=== PATIENT | female | born 1995 | race Caucasian/White ===

== ENCOUNTER 2016-08-15 01:13 | Emergency (ER) | payer MEDICAID, OTHER ==
[~2016-08-15] VITALS: Ht 167.6 cm; Wt 68.0 kg
--- OUTSIDE RECORDS SUMMARY | 2016-08-15 01:22 | XMS REPORT | Continuity of Care Document ---
Author Author Interface Organization Interface Address Unknown Phone Unavailable Problems Problem Status Onset Date Classification Date Reported Comments Source Medications Medication Details Route Status Patient Instructions Ordering Provider Order Date Source Tylenol Refill(s) 0 [facility] traMADol 50 mg oral tablet 50 mg=1 tablet, PO, q6hr, PRN Pain, Adjunct: Mild, Moderate and Severe, # 120 tablet, Refill(s) 0 [facility] HYDROcodone/acetaminophen 1 tablet PRN pain, PO, PRN PRN Pain, Adjunct: Mild, Moderate and Severe, Refill(s) 0 [facility] meloxicam 15 mg oral tablet 15 mg=1 tablet, PO, qDay, # 30 tablet, Refill(s) 0 [facility] Allergies, Adverse Reactions, Alerts Substance Category Reaction Severity Reaction type Status Date Reported Comments Source Immunizations Immunization Date Given Site Status Last Updated Comments Source Results Order Name Results Value Reference Range Date Interpretation Comments Source NUA Color Ur YELLOW 09/23/2014 [facility] NUA Clarity Ur CLEAR 09/23/2014 [facility] NUA Glucose Ur NEGATIVE 09/23/2014 [facility] NUA Ketones Ur NEGATIVE 09/23/2014 [facility] NUA Specific [place] Ur 1.020 09/23/2014 [facility] NUA pH Ur 7.0 09/23/2014 [facility] NUA Protein Ur NEGATIVE 09/23/2014 [facility] BasMet Sodium 138 mmol/L 135 - 145 09/07/2014 [facility] NUA Nitrite Ur NEGATIVE 09/23/2014 [facility] NUA Blood Ur NEGATIVE 09/23/2014 [facility] Potassium 4.5 mmol/L 3.5 - 5.2 09/07/2014 [facility]Met Chloride 103 mmol/L 99 - 112 09/07/2014 [facility] NUA Leukocytes Ur NEGATIVE 09/23/2014 [facility] Carbon Dioxide 26 mmol /L 20 - 30 09/07/2014 [facility] Anion Gap 9 mmol/L 7 - 14 09/07/2014 [facility] Calcium 9.0 mg/dL 8.6 - 10.5 09/07/2014 [facility]Met Glucose 90 mg/dL 65 - 110 09/07/2014 [facility] BUN 12 mg/dL 5 - 20 09/07/2014 [facility] Creatinine .79 mg/dL .35 - .84 09/07/2014 [facility]Met Creatinine, Old Calibration 1.0 mg/dL 0.5 - 1.0 NA This creatinine value is a calculated value from the newly implemented IDMS calibration. It represents the value equivalent to what was previously reported by the laboratory.
[facility] Citrate Ur Citrate Ur Random 63.6 mg/dL 09/27/2014 [facility] Citrate Ur Citrate/Creatinine Ur 544.5 mg/gm Cr 2014 [facility] Citrate Ur Calcium/Citrate Ur 0.14 ZZ 09/27/2014 [facility] N Micro WBC Ur None 09/23/2014 [facility] N Micro RBC Ur None 09/23/2014 [facility] N Micro Renal Epi Ur None 09/23/2014 [facility] Ca U Calcium Ur Random 9.2 mg /dL 09/23/2014 [facility] Ca U Calcium/Creatinine Ur Random 0.08 09/23/2014 [facility] UA Color Ur STRAW 09/07/2014 [facility] UA Clarity Ur CLEAR 09/07/2014 [facility] Creat U Creatinine Ur Random 116.8 mg/dL 09/23/2014 [facility] UA Glucose Ur NEGATIVE NEGATIVE 09/07/2014 [facility] UA Bili Ur NEGATIVE NEGATIVE 09/07/2014 [facility] UA Ketones Ur NEGATIVE NEGATIVE 09/07/2014 [facility] UA Specific [place] Ur 1.011 1.005 - 1.035 2014 [facility] UA pH Ur 7.0 4.6 - 8.0 09/07/2014 [facility] UA Protein Ur NEGATIVE NEGATIVE 09/07/2014 [facility] UA Nitrite Ur NEGATIVE NEGATIVE 09/07/2014 [facility] UA Blood Ur NEGATIVE NEGATIVE 09/07/2014 [facility] UA Leukocytes Ur NEGATIVE NEGATIVE 09/07/2014 [facility] UA Urobilinogen Ur NORMAL mg/ dL 0.2 - 2.0 09/07/2014 [facility] Vital Signs Vital Sign Value Date Comments Source Current Weight 63.30 kg 09/08 [facility] Temperature Celsius 37.3 Gayla 09/08/2014 [facility] Heart Rate 80 bpm 09/08/2014 [facility] Respiratory Rate 20 BR/min [facility] Systolic Blood Pressure Cuff Monitored <content ID=' [id number]'>120</content>/<content ID='[id number]'>74</content> mm[Hg ] 09/08/2014 [facility] Temperature Route Oral </br>(09/07/2014 19:00:00) <sup> </sup> 09/08/2014 [facility] Height/Length 166 cm 2014 [facility] Heart Rate 72 bpm 09/08/2014 [facility] Respiratory Rate 20 BR/min [facility] Systolic Blood Pressure Cuff Monitored <content ID=' [id number]'>120</content>/<content ID='[id number]'>58</content> mm[Hg ] 09/23/2014 [facility] Heart Rate 84 bpm 09/23/2014 [facility] Current Weight 63.1 kg 2014 [facility] Height/Length 165.6 cm 2014 [facility] Height/Length 165.6 cm 2014 [facility] Heart Rate 84 bpm 09/23/2014 [facility] Systolic Blood Pressure Cuff Monitored <content ID=' [id number]'>120</content>/<content ID='[id number]'>58</content> mm[Hg ] 09/23/2014 [facility] Current Weight 63.1 kg 2014 [facility] Encounters Location Location Details Encounter Type Encounter Number Reason For Visit Attending Provider ADM Date DC Date Status Source [facility] ER [id number] Pain - Abdomen/Pelvis Ida Marie 09/07/2014 09/07/2014 Active [facility] CLI [id number] 18 year old F with b/l flank pain. Normal UA and BMP. CHOLO showing cortical thinning of left kidney. Osvaldo Barron 09/23/2014 09/23/2014 Active [facility] Procedures Procedure Code Date Perfomer Comments Source
[2016-08-15 01:50] LABS: BASOPHILS % (AUTO) 0 % (0-10); EOSINOPHILS # (AUTO) 0.1 10^3/uL (0.0-0.3); EOSINOPHILS % (AUTO) 1 % (0-10); LYMPHOCYTES # (AUTO) 2.5 X 10^3 (1.0-4.0); LYMPHOCYTES % (AUTO) 17 % (12-44); MEAN CORPUSCULAR HEMOGLOBIN 22 PG (25-34); MEAN CORPUSCULAR HGB CONC 33 G/DL (32-36); MEAN CORPUSCULAR VOLUME 65 FL (80-99); MEAN PLATELET VOLUME 10.9 FL (7.4-10.4); MONOCYTES # (AUTO) 1.1 X 10^3 (0.0-1.0); MONOCYTES % (AUTO) 8 % (0-12); NEUTROPHILS # (AUTO) 10.5 X 10^3 (1.8-7.8); NEUTROPHILS % (AUTO) 74 % (42-75); PLATELET COUNT 311 10^3/uL (130-400); RED BLOOD COUNT 5.53 10^6/uL (4.35-5.85); RED CELL DISTRIBUTION WIDTH 15.6 % (10.0-14.5); WHITE BLOOD COUNT 14.3 10^3/uL (4.3-11.0)
[2016-08-15 02:03] LABS: PROTHROMBIN TIME PATIENT 12.9 SEC (12.2-14.7)
[2016-08-15 02:06] LABS: BAND NEUTROPHILS 0 %; BASOPHILS % (MANUAL) 0 %; EOSINOPHILS % (MANUAL) 0 %; LYMPHOCYTES % (MANUAL) 9 %; NEUTROPHILS % (MANUAL) 79 %
[2016-08-15 02:07] LABS: ANISOCYTOSIS SLIGHT; HYPOCHROMASIA SLIGHT; POLYCHROMASIA SLIGHT; REACTIVE LYMPHOCYTES 6 %; TEAR DROP CELLS SLIGHT
[2016-08-15 02:15] LABS: ALANINE AMINOTRANSFERASE 15 U/L (0-55); ALBUMIN 4.4 G/DL (3.2-4.5); AMYLASE 58 U/L (25-125); ANION GAP 13 MMOL/L (5-14); ASPARTATE AMINO TRANSFERASE 15 U/L (5-34); BILIRUBIN,TOTAL 0.5 MG/DL (0.1-1.0); BLOOD UREA NITROGEN 13 MG/DL (7-18); BUN/CREATININE RATIO 17; CALCIUM 9.2 MG/DL (8.5-10.1); CARBON DIOXIDE 19 MMOL/L (21-32); CHLORIDE 107 MMOL/L (98-107); CREATINE KINASE 25 U/L (29-168); CREATININE SERUM 0.75 MG/DL (0.60-1.30); GFR ESTIMATED > 60; GLUCOSE 108 MG/DL (70-105); LIPASE 13 U/L (8-78); POTASSIUM 3.7 MMOL/L (3.6-5.0); SODIUM 139 MMOL/L (135-145); TOTAL PROTEIN 7.3 G/DL (6.4-8.2)
[2016-08-15 02:25] LABS: TROPONIN I < 0.30 NG/ML (<0.30)
[2016-08-15] MEDS ORDERED: NS 100 ML (IVPB) BAG IV ONE (02:30)
[2016-08-15] MEDS ORDERED: IOHEXOL 350 MG/ML 150 ML (OMNIPAQUE 350) VIAL IV ONE (02:30)
--- NOTE | 2016-08-15 02:38 | ED Chest Pain ---
General Chief Complaint: Chest Pain Stated Complaint: CHEST PAIN,STS STABBING PAIN Nursing Triage Note: PT TO ED 9 W/ S.O. FOR C/O "HEART PAIN" ONSET 1800 THIS EVENING. REPORTS PAIN WORSE UPON INSPIRATION. 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 NO CONTROL. [facility] [facility] Allergies and Home Medications Allergies Coded Allergies: No Known Drug Allergies (Unverified , 08/15/16) Home Medications Methylprednisolone 4 Mg Tab.ds.pk #1 4 MG PO UD Prescribed by: RODO BURDEN on 08/15/16 0258 Review of Systems Constitutional: no symptoms reported EENTM: No Symptoms Reported Respiratory: No Symptoms Reported Cardiovascular: See HPI Chest PainDenies Edema, Denies Irregular Heart Rate, Denies Lightheadedness, Denies Palpitations, Denies Syncope Gastrointestinal: No Symptoms Reported Genitourinary: No Symptoms Reported Musculoskeletal: no symptoms reported Skin: no symptoms reported Psychiatric/Neurological: No Symptoms Reported Endocrine: No Symptoms Reported Hematologic/Lymphatic: No Symptoms Reported Past Gzbriui-Dbbygw-Hkzlqw Hx Patient Social History Alcohol Use: Denies Use Recreational Drug Use: No Smoking Status: Never a Smoker Recent Foreign Travel: No Contact w/Someone Who Travel: No Recent Infectious Disease Expo: No Recent Hopitalizations: No Surgeries HX Surgeries: No Respiratory Hx Respiratory Disorders: No Cardiovascular Hx Cardiac Disorders: Yes Cardiac Disorders: Heart Murmur Neurological Hx Neurological Disorders: No Reproductive System Hx Reproductive Disorders: No Female Reproductive Disorders: Ovarian Cyst Genitourinary Hx Genitourinary Disorders: Yes Genitourinary Disorders: Bladder Infection Gastrointestinal Hx Gastrointestinal Disorders: No Musculoskeletal Hx Musculoskeletal Disorders: No Endocrine Hx Endocrine Disorders: No HEENT HX ENT Disorders: No Cancer Hx Cancer: No Psychosocial Hx Psychiatric Problems: No Integumentary HX Skin/Integumentary Disorder: No Blood Transfusions Hx Blood Disorders: No (IRON DEFICIENCY ANEMIA) Physical Exam Vital Signs Vital Sign - Last 12Hours 08/15/16 01:18 Temp 98.1 Pulse 96 Resp 20 B/P 141/83 Pulse Ox 99 O2 Delivery Room Air Capillary Refill : Less Than 3 Seconds General Appearance: No Apparent Distress WD/WN Other (SMILING, MOVES WITHOUT DIFFICULTY. DOES NOT APPEAR TO BE IN ANY DISCOMFORT OR DISTRESS) HEENT: PERRL/EOMI Neck: Full Range of Motion Normal Inspection Non Tender Supple Respiratory: Chest Non Tender Normal Breath Sounds No Accessory Muscle Use No Respiratory Distress Cardiovascular: Regular Rate, Rhythm No Edema No JVD No Murmur Normal Peripheral Pulses Gastrointestinal: Normal Bowel Sounds No Organomegaly No Pulsatile Mass Non Tender Soft Extremity: Normal Capillary Refill Normal Inspection Normal Range of Motion Non Tender No Calf Tenderness No Pedal Edema Neurologic/Psychiatric: Alert Oriented x3 No Motor/Sensory Deficits Normal Mood/Affect conventional mortgage underwriter II-XII Norm as Tested Skin: Normal Color Warm/DryNo Rash Progress/Results/Core Measures Results/Orders Lab Results Laboratory Tests Test 08/15/16 01:35 08/15/16 01:41 Range/Units Ur Tricyclic Antidepressants Screen NEGATIVE NEGATIVE Urine Amphetamines Screen NEGATIVE NEGATIVE Urine Barbiturates Screen NEGATIVE NEGATIVE Urine Benzodiazepines Screen NEGATIVE NEGATIVE Urine Cannabinoids Screen NEGATIVE NEGATIVE Urine Cocaine Screen NEGATIVE NEGATIVE Urine Methadone Screen NEGATIVE NEGATIVE Urine Methamphetamines Screen NEGATIVE NEGATIVE Urine Opiates Screen POSITIVE H NEGATIVE Urine Oxycodone Screen NEGATIVE NEGATIVE Urine Phencyclidine Screen NEGATIVE NEGATIVE Urine Propoxyphene Screen NEGATIVE NEGATIVE Activated Partial Thromboplast Time 28 24-35 SEC Alanine Aminotransferase (ALT/SGPT) 15 0-55 U/L Albumin 4.4 3.2-4.5 G/DL Alkaline Phosphatase 66 40-136 U/L Amylase Level 58 25-125 U/L Anion Gap 13 5-14 MMOL/L Anisocytosis SLIGHT Aspartate Amino Transf (AST/SGOT) 15 5-34 U/L B-Type Natriuretic Peptide < 10.0 <100.0 PG/ML BUN/Creatinine Ratio 17 Band Neutrophils 0 % Basophils # (Auto) 0.0 0.0-0.1 10^3/uL Basophils % (Manual) 0 % Basophils (%) (Auto) 0 0-10 % Blood Urea Nitrogen 13 7-18 MG/DL Calcium Level 9.2 8.5-10.1 MG/DL Carbon Dioxide Level 19 L 21-32 MMOL/L Chloride Level 107 98-107 MMOL/L Creatine Kinase MB 0.3 <6.6 NG/ML Creatinine 0.75 0.60-1.30 MG/DL Eosinophils # (Auto) 0.1 0.0-0.3 10^3/uL Eosinophils % (Manual) 0 % Eosinophils (%) (Auto) 1 0-10 % Estimat Glomerular Filtration Rate > 60 Glucose Level 108 H 70-105 MG/DL Hematocrit 36 35-52 % Hemoglobin 11.9 11.5-16.0 G/DL Hypochromasia SLIGHT INR Comment 1.0 0.8-1.4 Lipase 13 8-78 U/L Lymphocytes # (Auto) 2.5 1.0-4.0 X 10^3 Lymphocytes % (Manual) 9 % Lymphocytes (%) (Auto) 17 12-44 % Magnesium Level 2.0 1.8-2.4 MG/DL Mean Corpuscular Hemoglobin 22 L 25-34 PG Mean Corpuscular Hemoglobin Concent 33 32-36 G/DL Mean Corpuscular Volume 65 L 80-99 FL Mean Platelet Volume 10.9 H 7.4-10.4 FL Monocytes # (Auto) 1.1 H 0.0-1.0 X 10^3 Monocytes % (Manual) 6 % Monocytes (%) (Auto) 8 0-12 % Neutrophils # (Auto) 10.5 H 1.8-7.8 X 10^3 Neutrophils % (Manual) 79 % Neutrophils (%) (Auto) 74 42-75 % Platelet Count 311 130-400 10^3/uL Polychromasia SLIGHT Potassium Level 3.7 3.6-5.0 MMOL/L Prothrombin Time 12.9 12.2-14.7 SEC Reactive Lymphocytes 6 % Red Blood Count 5.53 4.35-5.85 10^6/uL Red Cell Distribution Width 15.6 H 10.0-14.5 % Serum Test, Qualitative NEGATIVE NEGATIVE Sodium Level 139 135-145 MMOL/L Tear Drop Cells SLIGHT Total Bilirubin 0.5 0.1-1.0 MG/DL Total Creatine Kinase 25 L 29-168 U/L Total Protein 7.3 6.4-8.2 G/DL Troponin I < 0.30 <0.30 NG/ML White Blood Count 14.3 H 4.3-11.0 10^3/uL My Orders Orders-RODO BURDEN DO Amylase (08/15/16 01:23) Cbc With Automated Diff (08/15/16:23) Comprehensive Metabolic Panel (08/15/16:23) Creatine Kinase (08/15/16:23) Creatine Kinase Mb (08/15/16:23) Lipase (08/15/16:23) Partial Thromboplastin Time (08/15/16:) Protime With Inr (08/15/16:23) Troponin I (08/15/16:23) O2 (08/15/16:23) Ekg Tracing (08/15/16:) BNP (08/15/16:23) Monitor-Rhythm Ecg Trace Only (08/15/16:) Drug Screen Stat (Urine) (08/15/16:23) Hcg,Qualitative Serum (08/15/16:23) Magnesium (08/15/16:23) Ct Angio Chest W (08/15/16 01:23) Chest Pa/Lat (2 View) (08/15/16 01:33) Manual Differential (08/15/16 01:41) Iohexol Injection (Omnipaque 350 Mg/Ml 1 (08/15/16 02:30) Ns (Ivpb) (Sodium Chloride 0.9% Ivpb Bag (08/15/16 02:30) Ketorolac Injection (Toradol Injection) (08/15/16 03:00) Medications Given in ED Current Medications Medications Dose Ordered Sig/Dipesh Route Start Time Stop Time Status Last Admin Dose Admin Iohexol 150 ml ONCE ONCE IV 08/15/16 02:30 08/15/16 02:31 DC 08/15/16 02:29 125 ML Sodium Chloride 100 ml ONCE ONCE IV 08/15/16 02:30 08/15/16 02:31 DC 08/15/16 02:29 80 ML Vital Signs/I&O Vital Sign - Last 12Hours 08/15/16 08/15/16 01:18 01:18 Temp 98.1 Pulse 96 Resp 20 B/P 141/83 Pulse Ox 99 O2 Delivery Room Air Room Air Blood Pressure Mean: 102 Progress Note : Progress Note UNEVENTFUL ER STAY ECG Initial ECG Impression Time: 01:38 Initial ECG Rate: 85 Initial ECG Rhythm: Normal Sinus Initial ECG Impression: Normal Initial ECG Comparisson: No Previous ECG Available Diagnostic Imaging Comments CXR--NO ACUTE PROCESS, PENDING RADIOLOGIST REVIEW CT CHEST ANGIOGRAM--NO ACUTE PROCESS, REACTIVE-APPEARING MEDIASTINAL NODES. SUBPLEURAL 10 MM RLL NODULE--PER STAT RAD VIA FAX @ [phone] Reviewed: Reviewed by Me Departure Impression Impression: Primary Impression: Left-sided chest wall pain Additional Impressions: Pain of anterior chest wall with respiration Nodule of right lung Disposition: HOME, SELF-CARE Condition: Stable Departure-Patient Inst. Referrals: NO,LOCAL PHYSICIAN (PCP) Primary Care Physician Patient Instructions: Chest Pain That Is Not Caused by the Heart (DC), Single Pulmonary Nodule Add. Discharge Instructions: FOLLOW UP WITH [facility]-2 DAYS FOR FURTHER CARE All discharge instructions reviewed with patient and/or family. Voiced understanding. Scripts Methylprednisolone (Medrol)4 Mg Tab.ds.pk4 Mg PO UD #1 PKG Prov:RODO BURDEN DO 08/15/16 RODO BURDEN DO Aug 15, 2016 02:38
[2016-08-15] MEDS ORDERED: METH4TAB PO (02:58)
[2016-08-15] MEDS ORDERED: KETOROLAC 30 MG/ML VIAL IVP ONE (03:00)
[2016-08-15 03:04] VITALS: BP 113/68
--- NOTE | 2016-08-15 08:20 | Diagnostic Imaging Report ---
INDICATION: Chest pain. FINDINGS: Nodularity projecting over the right hilum, presumed adenopathy, etiology indeterminate noted. Lungs and cells appeared clear. There is no effusion or pneumothorax. IMPRESSION: Probable right hilar lymphadenopathy, otherwise negative. Dictated by: Dictated on workstation # [id number]
--- NOTE | 2016-08-15 08:22 | Diagnostic Imaging Report ---
PROCEDURE: CT angiography of the chest with contrast. TECHNIQUE: Multiple contiguous axial images were obtained through the chest after uneventful bolus administration of intravenous contrast. Reconstructed CTA MIP acquisitions were also performed. INDICATION: Chest pain. FINDINGS: Thoracic aorta is patent and nonaneurysmal showing no mural hemorrhage, dissection or rupture. The pulmonary arterial branches are patent. There is no pleural or pericardial effusion. There is no pneumothorax. Low-density subpleural nodule in the right lower lobe measures a diameter of 9 mm. No other lung mass. There is a trace left basilar partial atelectasis of the posterior sulcus. Right paratracheal superior mediastinal node measures 2.1 x 1.5 cm. Right superior hilar node measures 2.3 cm. Right hilar node posteroinferiorly measures 1.7 x 0.9 cm. A subcarinal node measures 2.1 x 1.2 cm. No acute soft tissue or osseous chest wall pathology. Visualized upper abdomen reveals a nonfocal spleen with relatively small but unobstructed left kidney showing scarring in its upper pole. IMPRESSION: No thoracic effusion or pneumothorax. Negative for acute aortic pathology. Negative for PE. Mediastinal and right hilar lymphadenopathy with subpleural right lower lobe lung nodule. Adenopathy etiology indeterminate and assuming the absence of any known primary malignancy presumptively reactive but substantial enough to warrant a followup in 6 months time. This would also be useful to confirm expected stability of the likely benign subpleural right lower lobe nodule. No apparent consolidating pneumonia or failure pattern. Dictated by: Dictated on workstation # [id number]
== END 2016-08-15 03:04 | disposition home or self-care (01) ==
LOC: ER 01:17
DX: R07.89 Other chest pain (principal); R91.1 Solitary pulmonary nodule; R59.0 Localized enlarged lymph nodes
CPT/HCPCS: 36415; 71020; 71275; 80053; 80306; 82150; 82550; 82553; 83690; 83735; 83880; 84484; 84703; 85007; 85027; 85610; 85730; 93005; 96374